=== PATIENT | male | born 1970 | race Caucasian/White ===

== ENCOUNTER 2019-04-04 09:52 | Emergency (ER) | payer MEDICARE, BC ==
--- NOTE | 2019-04-04 10:05 | UC ---
Skin Complaint HPI - HPI Summary HPI Summary: Patient is 48 year old gentleman, who present today to the urgent care with skin rash for past 4 days. 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 Noticed skin rash on the left breast 3 days ago and has also noticed rash in the right lower abdominal and in the posterior aspect of the arm and medial morales on the right side and the outer aspect of the right the. The day prior to the rash he has been out on the trails with a friend but denies any tick bite that he can remember. He does not remember any tick bites prior to that either. He was walking around without a shirt as it was warm. He denies any fevers or chills Denies any new soap, detergent , cosmetics, food or a possible exposure. - History of Current Complaint Time Seen by Provider: 04/04/19 10:01 Stated Complaint: SKIN COMPLAINT Hx Obtained From: Patient - Allergy/Home Medications Allergies/Adverse Reactions: Allergies Allergy/AdvReac Type Severity Reaction Status Date / Time No Known Allergies Allergy Verified 04/04/19 10:02 Home Medications: Home Medications Levothyroxine TAB* [Synthroid TAB*] 125 mcg PO DAILY 04/04/19 [History Confirmed 04/04/19] Sertraline* [Zoloft*] 25 mg PO DAILY 04/04/19 [History Confirmed 04/04/19] traZODone TAB* [Desyrel TAB*] 100 mg PO BEDTIME 04/04/19 [History Confirmed ] PMH/Surg Hx/FS Hx/Imm Hx - Additional Past Medical History Additional PMH: Past Medical History : TBI at age 11 , SKIP Surgical History: tracheostomy, G-tubeFamily History : non contributory Social History : chew tobacco, no alcohol, , non smoker, no drug use. Lives at his home Previously Healthy: Yes - Family History Known Family History: Positive: Non-Contributory Review of Systems All Other Systems Reviewed And Are Negative: Yes Constitutional: Positive: Negative Skin: Positive: Rash - Multiple areas on the body Eyes: Positive: Negative ENT: Positive: Negative Respiratory: Positive: Negative Cardiovascular: Positive: Negative Gastrointestinal: Positive: Negative Genitourinary: Positive: Negative Motor: Positive: Negative Neurovascular: Positive: Negative Musculoskeletal: Positive: Negative Neurological: Positive: Negative Psychological: Positive: Negative Is Patient Immunocompromised?: No Physical Exam - Summary Physical Exam Summary: Vital Signs Reviewed: Yes A+Ox3, no distress Eyes: Conjunctiva Clear ENT: Hearing grossly normal neck: supple Respiratory: Positive: No respiratory distress, No accessory muscle use Cardiovascular: skin color reflect adequate perfusion Musculoskeletal Exam: LARES x 4 without difficulty Neurological: Positive: Alert, ambulatory without difficulty Psychological: Positive: Normal Response To Family Skin: Positive: Rash noticed as following: Left breast: 8 inchesx 6 inches area of erythema without any drainage, tender to palpate Right medial morales: 4-1/2 inch x 5 inch area of erythema with clearing noted in the center, no tenderness to palpation Right abdominal wall: 2 inch x half inch area of erythema and this is a blanching rash, no drainage, no tenderness to palpation Right posterior arm: Another area of 1 inch x 1 inch area of erythema, this is blanching, no drainage, no tenderness Triage Information Reviewed: Yes Vital Signs Reviewed: Yes Course/Dx - Course Course Of Treatment: During the visit today, we discussed the findings and rash appears to be secondary to cellulitis ( left breast) versus lyme disease( morales and knee). Plan to start him on doxycycline and follow-up with primary care doctor within 1 -2 days. We also obtained blood work for Lyme disease. I will prescribe the medication to the pharmacy . Patient expressed understanding . - Diagnoses Provider Diagnosis: Cellulitis, Lyme disease Discharge - Sign-Out/Discharge Documenting (check all that apply): Patient Departure All imaging exams completed and their final reports reviewed: No Studies - Discharge Plan Condition: Stable Disposition: HOME Prescriptions: DOXYcycline CAP(*) [DOXYcycline 100MG CAP(*)] 100 mg PO BID 14 Days #28 cap Patient Education Materials: Lyme Disease (ED), Cellulitis (ED) Referrals: Prashant Archibald MD [Primary Care Provider] - 2 Days Additional Instructions: Please start taking the medication as prescribed to the pharmacy . The area outlining the rashes have been marked with a pen. Please monitor for any spreading beyond the marked area and return if it is getting worse despite the antibiotics. Follow up with your primary care doctor in 2 days. Patients blood pressure slightly high in Urgent care today , plan follow up with PCP for better control Return to Urgent care / ER if symptoms get worse. - Billing Disposition and Condition Condition: STABLE Disposition: Home
[2019-04-04 10:13] VITALS: BP 125/87
== END 2019-04-04 11:05 | disposition home or self-care (01) ==
LOC: UCCORT 09:52
DX: N61.0 Mastitis without abscess (principal); L03.115 Cellulitis of right lower limb; L03.311 Cellulitis of abdominal wall; L03.113 Cellulitis of right upper limb; A69.20 Lyme disease, unspecified; Z86.11 Personal history of tuberculosis
CPT/HCPCS: 36415; 86617; 86618; 99212; G0463